=== PATIENT | female | born 1990 | race Caucasian/White ===

== ENCOUNTER 2016-10-31 08:09 | Inpatient (IN) | payer MEDICAID ==
[~2016-10-31 08:09] MED LIST: Acetaminophen 325 MG Tab PO PRN; Carboprost Tromethamine 250 MCG/1 ML Amp IM PRN; Lactated Ringers 1,000 ML IV SCH; Lactated Ringers 500 ML IV ONE; Lidocaine 1% 30 ML SDV INJECT PRN; Methylergonovine 0.2 MG/1 ML Amp IM PRN; Misoprostol 400 MCG (4 X 100 MCG TAB) RECTAL PRN; Ondansetron 4 MG/2 ML SDV IV PRN; Sodium Chloride 0.9% 10 ML Syringe FLUSH PRN
[2016-10-31] MEDS: Oxytocin/Normal Saline 30 UNIT/500 ML BAG IV SCH ×2 (08:50→18:38)
[2016-10-31] MEDS: fentaNYL 100 MCG/2 ML SDV IVPUSH PRN ×2 (13:05→15:15)
[2016-10-31] MEDS ORDERED: Ketorolac 30 MG/ML SDV IVPUSH PRN (16:46)
--- NOTE | 2016-10-31 16:51 | PCM.DEL ---
[id number]: 10/31/16 Mother's Due Date: 11/14/16 (lack of care ultrasound was inaccurate) - Delivery Note Labor: induced by oxytocin Delivery Outcome: Livebirth Infant Delivery Method: Spontaneous Vaginal Delivery Delivery Mode: Spontaneous Presentation: Right Occiput Posterior (ROP) Nuchal cord: present (delivered through) Anesthesia Type: None Amniotic Fluid Description: Clear (blood tinged) Episiotomy Type: None Laceration: vaginal ("skid rosas") Placenta: intact, spontaneous Cord: 3 vessels Estimated blood loss: 250 Resuscitation needed: No Armstrong: bulb syringe, stimulated, blanket used Score 1 min: 8 Score 5 min: 9 Second Stage Interventions: Reports: Encouragement Given Delivery Comments (Free Text/Narrative):: Dr. Yanez and myself (Katelyn Lin [facility]) Mother is a 27 year old now with a history of an with GBS septicemia. NO anesthesia was given due to patient preferences. Vancomycin for GBS prophylaxis was given Viable Infant girl was born via a vaginal delivery that was induced by pitocin. There was a cervical rim that was reducible but noted throughout active phase of labor. Loose Nuchal x1 and infant was delivered through. was bulb suctioned, dried, and stimulated as she was placed on mothers chest for skin to skin. Umbilical cord was 3 vessel and cord blood was collected to be sent to lab. Placenta was delivered and intact in approximately 10 minutes via active management. Some vaginal abrasions noted but hemostatic and did not require suturing. Cervix was visualized and no lacerations were noted. EBL was approximately 250 mL Mother and in stable condition Induction Criteria - Induction Estimated pelvis: Reports: Adequate Reassuring monitoring strip: Yes - General Info Date of Service: 10/31/16 Subjective Update: patient has delivered reports being extremely sore and is asking for pain management. plans to breast feed - Review of Systems General: Denies: Fever HEENT: Reports: sinus congestion Pulmonary: Reports: cough. Denies: shortness of breath, wheezing Cardiovascular: Reports: No Symptoms Gastrointestinal: Denies: Nausea, Vomiting Genitourinary: Reports: no symptoms Musculoskeletal: Reports: no symptoms Skin: Reports: no symptoms Neurological: Reports: No Symptoms Psychiatric: Reports: no symptoms - Patient Data Vitals - most recent: Last Vital Signs Temp 98.4 F 10/31/16 13:46 Pulse 91 10/31/16 14:02 Resp 16 10/31/16 14:02 BP 106/72 10/31/16 14:02 Pulse Ox 96 10/31/16 13:31 Weight - most recent: 68.946 kg I&O - last 24 hours: Intake & Output 10/31/16 10/31/16 10/31/16 06:59 14:59 22:59 Intake Total 770 Output Total 300 Balance 470 Lab Results last 24 hrs: Laboratory Results - last 24 hr 10/31/16 Range/Units 08:30 WBC 4.9 L (5.0-10.0) 10^3/uL RBC 3.92 L (4.2-5.4) 10^6/uL Hgb 10.3 L (12.0-16.0) g/dL Hct 32.1 L (37.0-47.0) % MCV 81.9 (80-100) fL MCH 26.3 L (27.0-34.0) pg MCHC 32.1 L (33.0-35.0) g/dL Plt Count 140 L (150-450) 10^3/uL Med Orders - Current: Current Medications Acetaminophen (Tylenol) 650 mg PO Q4H PRN PRN Reason: Pain (Mild 1-3) and fever Carboprost Tromethamine (Hemabate Ds) 250 mcg IM ASDIRECTED PRN PRN Reason: HEMORRHAGE Oxytocin/Sodium Chloride (Pitocin In Ns 30 Unit/500 Ml) 30 unit in 500 mls @ 2 mls/hr IV TITRATE [facility]REY; 2 MUNITS/MIN PRN Reason: Protocol Last Titration: 10/31/16 14:15 Dose: 20 munits/min, 20 mls/hr Methylergonovine Maleate (Methergine) 0.2 mg IM ASDIRECTED PRN PRN Reason: Hemorrhage Misoprostol (Cytotec) 800 mcg RECTAL ASDIRECTED PRN PRN Reason: Hemorrhage Sodium Chloride (Saline Flush) 10 ml FLUSH ASDIRECTED PRN PRN Reason: Keep Vein Open Discontinued Medications Fentanyl (Sublimaze) 50 mcg IVPUSH Q1H PRN PRN Reason: Pain (moderate 4-6) Last Admin: 10/31/16 15:15 Dose: 50 mcg Lactated Ringer's (Ringers, Lactated) 500 mls @ 999 mls/hr IV .BOLUS ONE Stop: 10/31/16 00:47 Lactated Ringer's (Ringers, Lactated) 1,000 mls @ 125 mls/hr IV ASDIRECTED [facility] Last Admin: 10/31/16 13:01 Dose: 125 mls/hr Vancomycin HCl 1 gm/ Sodium (Chloride) 250 mls @ 166.7 mls/hr IV Q12HR [facility] Last Admin: 10/31/16 08:48 Dose: 166.7 mls/hr Lidocaine HCl (Xylocaine-Mpf 1%) 10 ml INJECT ASDIRECTED PRN PRN Reason: Perineal Repair Ondansetron HCl (Zofran) 4 mg IV Q4H PRN PRN Reason: Nausea/Vomiting - Exam General: alert, oriented, cooperative, moderate distress (Female) Exam: Normal external exam Extremities: no edema Skin: warm, dry, intact - Problem List & Annotations (1) Insufficient care SNOMED Code(s): 2313043605036 Code(s): O09.30 - SUPRVSN OF PREG W INSUFFICIENT ANTENAT CARE, UNSP TRIMESTER Status: Acute (2) Hx maternal GBS (group B streptococcus) affected , SNOMED Code(s): 58222158 Code(s): O09.299 - SUPRVSN OF PREG W POOR REPRODCTV OR OBSTET HISTORY, UNSP TRI Status: Acute (3) Blood type A+ SNOMED Code(s): 187481659 Code(s): Z67.10 - TYPE A BLOOD, RH POSITIVE Status: Acute (4) Rubella nonimmune status, delivered, current hospitalization SNOMED Code(s): 083324881 Code(s): O99.89 - OTH DISEASES AND CONDITIONS COMPL PREG/CHLDBRTH; Z28.3 - UNDERIMMUNIZATION STATUS Status: Acute (5) Anemia affecting SNOMED Code(s): 75405558 Code(s): O99.019 - ANEMIA COMPLICATING , UNSPECIFIED TRIMESTER Status: Acute - Problem List Review Problem List Initiated/Reviewed/Updated: Yes - Assessment Assessment:: Patient is now status post vaginal delivery induced by pitocin Insufficent care Blood type A + Rubella nonimmune HIV, HBsAg and RPR nonreactive HIstory of infant affected GBS septicemia in previous Anemia complicating - Plan Plan:: 1. begin cares per unit protocol 2. Toradol for pain management (see orders) 3. Breast feed as able - consult as needed 4. labs see orders Katelyn Lin MSIII <Sofía Yanez - Last Filed: 11/03/16 10:36> - Patient Data Vitals - most recent: Last Vital Signs Temp 36.4 C 11/01/16 08:00 Pulse 81 11/01/16 08:00 Resp 18 11/01/16 08:00 BP 99/63 11/01/16 08:00 Pulse Ox 98 11/01/16 08:00 Med Orders - Current: Current Medications Discontinued Medications Acetaminophen (Tylenol) 650 mg PO Q4H PRN PRN Reason: Pain (Mild 1-3) and fever Last Admin: 11/01/16 12:16 Dose: 650 mg Carboprost Tromethamine (Hemabate Ds) 250 mcg IM ASDIRECTED PRN PRN Reason: HEMORRHAGE Fentanyl (Sublimaze) 50 mcg IVPUSH Q1H PRN PRN Reason: Pain (moderate 4-6) Last Admin: 10/31/16 15:15 Dose: 50 mcg Lactated Ringer's (Ringers, Lactated) 500 mls @ 999 mls/hr IV .BOLUS ONE Stop: 10/31/16 00:47 Last Admin: 10/31/16 15:37 Dose: 125 mls/hr Lactated Ringer's (Ringers, Lactated) 1,000 mls @ 125 mls/hr IV ASDIRECTED [facility] Last Admin: 10/31/16 13:01 Dose: 125 mls/hr Oxytocin/Sodium Chloride (Pitocin In Ns 30 Unit/500 Ml) 30 unit in 500 mls @ 2 mls/hr IV TITRATE HUMPHREY; 2 MUNITS/MIN PRN Reason: Protocol Last Titration: 10/31/16 19:45 Dose: 0 munits/min, 0 mls/hr Vancomycin HCl 1 gm/ Sodium (Chloride) 250 mls @ 166.7 mls/hr IV Q12HR [facility] Last Admin: 10/31/16 08:48 Dose: 166.7 mls/hr Ketorolac Tromethamine (Toradol) 30 mg IVPUSH Q6H PRN PRN Reason: Pain Stop: 11/05/16 16:46 Last Admin: 10/31/16 17:51 Dose: 30 mg Lidocaine HCl (Xylocaine-Mpf 1%) 10 ml INJECT ASDIRECTED PRN PRN Reason: Perineal Repair Methylergonovine Maleate (Methergine) 0.2 mg IM ASDIRECTED PRN PRN Reason: Hemorrhage Misoprostol (Cytotec) 800 mcg RECTAL ASDIRECTED PRN PRN Reason: Hemorrhage Ondansetron HCl (Zofran) 4 mg IV Q4H PRN PRN Reason: Nausea/Vomiting Prenat Multivit/Insurance Sales Specialist/Iron/Folic Ac ( Plus Iron) 1 each PO WITHBREAKFAST HUMPHREY Sodium Chloride (Saline Flush) 10 ml FLUSH ASDIRECTED PRN PRN Reason: Keep Vein Open - Plan Plan:: Agree with student assessment and plan. Normal vaginal delivery. No complications noted. Proceed with routine cares. Patient anticipates desiring to go home at 24 hours post delivery. Sofía Yanez MD
--- NOTE | 2016-10-31 17:12 | PCM.LDHP ---
L&D History of Present Illness - General Date of Service: 10/31/16 Admit Problem/Dx: Patient Status Order with Admit Dx/Problem 10/31/16 00:17 Patient Status [ADT] Routine Admission Diagnosis/Problem Admission Diagnosis/Problem care - History of Present Illness Introduction:: Patient is a 26-year-old at 41 weeks 3 days per her LMP. she presents to labor and delivery today for induction of labor due to postdates . It should be noted that she received late care. She had an ultrasound which would place her at 38 weeks 0 days gestation today; however, patient is very certain on her LMP. I had a long discussion with both the patient and her yesterday and last week regarding optimal time for induction based on the differing dates. Patient also had a BPP and NST yesterday with a score of 10 out of 10. Patient has been feeling well, although she does complain of some nasal congestion and a sore throat for the past 2 days. She did have a strep test done yesterday which was negative. Baby has been active. She has had some Lynn Escobedo contractions but nothing regular. No vaginal bleeding or leaking of fluid. Pain Score: 6 - Related Data Allergies/Adverse Reactions: Allergies Allergy/AdvReac Type Severity Reaction Status Date / Time Penicillins Allergy Anaphylactic Verified 10/31/16 09:18 Shock Home Medications: Home Meds Famotidine [Pepcid] 20 mg PO DAILY PRN 10/30/16 [History] Ferrous Sulfate [Iron] 1 tab PO BID 10/30/16 [History] PNV95/Ferrous Fumarate/FA [ Tablet] 1 tab PO DAILY 10/30/16 [History] Past Medical History - Past Health History Medical/Surgical History: Denies Medical/Surgical History HEENT History: Reports: None Cardiovascular History: Reports: None Respiratory History: Reports: None Gastrointestinal History: Reports: None Genitourinary History: Reports: None [employer] TE[employer] 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: Reports: , Other (see below) (first baby developed GBS sepsis shortly after delivery) Musculoskeletal History: Reports: None Neurological History: Reports: None Psychiatric History: Reports: None Endocrine/Metabolic History: Reports: None Hematologic History: Reports: Anemia Immunologic History: Reports: None Oncologic (Cancer) History: Reports: None Dermatologic History: Reports: None - Infectious Disease History Infectious Disease History: Reports: None - Past Surgical History Head Surgeries/Procedures: Reports: None Social & Family History - Family History Family Medical History: Noncontributory - Tobacco Use Smoking Status *Q: Former Smoker Years of Tobacco use: 10 Packs/Tins Daily: 0.5 Used Tobacco, but Quit: Yes Month Tobacco Last Used: 03 Second Hand Smoke Exposure: No - Caffeine Use Caffeine Use: Reports: Coffee, Soda - Recreational Drug Use Recreational Drug Use: No H&P Review of Systems - Review of Systems: Review Of Systems: See Below General: Reports: no symptoms HEENT: Reports: sinus congestion, sore throat Pulmonary: Reports: No Symptoms Cardiovascular: Reports: no symptoms Gastrointestinal: Reports: No symptoms Genitourinary: Reports: no symptoms Musculoskeletal: Reports: no symptoms Skin: Reports: no symptoms Neurological: Reports: No Symptoms L&D Exam - Exam Exam: See Below - Vital Signs Vital Signs: Last Vital Signs Temp 36.9 C 10/31/16 13:46 Pulse 91 10/31/16 14:02 Resp 16 10/31/16 14:02 BP 106/72 10/31/16 14:02 Pulse Ox 96 10/31/16 13:31 Weight: 68.946 kg - OB Specific Contraction Duration (sec): 30-60 Contraction Frequency (min): 2-3 Contraction Intensity: Moderate to Strong Presentation: Right Occiput Posterior (ROP) - Senior Score Senior Score Cervix Position: Midposition Senior Score Consistency: Soft Senior Score Effacement: 51-70% Senior Score Dilation: 3-4 cm Senior Score 's Station: -2 Senior Score Total: 8 - Exam General: alert, oriented Lungs: Clear to auscultation, Normal respiratory effort Cardiovascular: regular rate, regular rhythm Extremities: normal inspection. No: edema Skin: warm, dry, intact - Patient Data Lab Results last 24 hrs: Laboratory Results - last 24 hr 10/31/16 Range/Units 08:30 WBC 4.9 L (5.0-10.0) 10^3/uL RBC 3.92 L (4.2-5.4) 10^6/uL Hgb 10.3 L (12.0-16.0) g/dL Hct 32.1 L (37.0-47.0) % MCV 81.9 (80-100) fL MCH 26.3 L (27.0-34.0) pg MCHC 32.1 L (33.0-35.0) g/dL Plt Count 140 L (150-450) 10^3/uL Result Diagrams: 10/31/16 08:30 Problem List Initiated/Reviewed/Updated: Yes Orders Last 24hrs: Active Orders 24 hr Category Date Time Status Patient Status [ADT] Routine ADT 10/31/16 00:17 Active Communication Order [RC] ASDIRECTED Care 10/31/16 00:17 Active Communication Order [RC] ASDIRECTED Care 10/31/16 00:17 Active Communication Order [RC] ASDIRECTED Care 10/31/16 00:17 Active Communication Order [RC] ASDIRECTED Care 10/31/16 00:17 Active Notify Provider [RC] PRN Care 10/31/16 00:17 Active Notify Provider [RC] STAT Care 10/31/16 00:17 Active Peripheral IV Care [RC] . DIRECTED Care 10/31/16 00:18 Active Pump Management, Intrathecal [RC] ASDIRECTED Care 10/31/16 00:17 Inactive Vaginal Exam [RC] PRN Care 10/31/16 00:17 Active Acetaminophen [Tylenol] Med 10/31/16 00:17 Active 650 mg PO Q4H PRN Carboprost Tromethamine [Hemabate DS] Med 10/31/16 00:17 Active 250 mcg IM ASDIRECTED PRN Ketorolac [Toradol] Med 10/31/16 16:46 Active 30 mg IVPUSH Q6H PRN Methylergonovine [Methergine] Med 10/31/16 00:17 Active 0.2 mg IM ASDIRECTED PRN Misoprostol [Cytotec] Med 10/31/16 00:17 Active 800 mcg RECTAL ASDIRECTED PRN Oxytocin/Normal Saline [Pitocin in NS 30 UNIT/500 ML] Med 10/31/16 00:30 Active 30 unit in 500 ml IV TITRATE Sodium Chloride 0.9% [Saline Flush] Med 10/31/16 00:17 Active 10 ml FLUSH ASDIRECTED PRN Peripheral IV Insertion Adult [OM.PC] Urgent Oth 10/31/16 00:17 Ordered Saline Lock Insert [OM.PC] Routine Oth 10/31/16 00:17 Ordered Resuscitation Status Routine Resus Stat 10/31/16 00:17 Ordered Medication Orders Acetaminophen (Tylenol) 650 mg PO Q4H PRN PRN Reason: Pain (Mild 1-3) and fever Carboprost Tromethamine (Hemabate Ds) 250 mcg IM ASDIRECTED PRN PRN Reason: HEMORRHAGE Oxytocin/Sodium Chloride (Pitocin In Ns 30 Unit/500 Ml) 30 unit in 500 mls @ 2 mls/hr IV TITRATE HUMPHREY; 2 MUNITS/MIN PRN Reason: Protocol Last Titration: 10/31/16 14:15 Dose: 20 munits/min, 20 mls/hr Titration: 10/31/16 13:45 Dose: 18 munits/min, 18 mls/hr Titration: 10/31/16 13:08 Dose: 16 munits/min, 16 mls/hr Titration: 10/31/16 12:02 Dose: 14 munits/min, 14 mls/hr Titration: 10/31/16 11:31 Dose: 12 munits/min, 12 mls/hr Titration: 10/31/16 11:01 Dose: 10 munits/min, 10 mls/hr Titration: 10/31/16 10:32 Dose: 8 munits/min, 8 mls/hr Titration: 10/31/16 10:02 Dose: 6 munits/min, 6 mls/hr Titration: 10/31/16 09:37 Dose: 4 munits/min, 4 mls/hr Admin: 10/31/16 08:50 Dose: 2 munits/min, 2 mls/hr Ketorolac Tromethamine (Toradol) 30 mg IVPUSH Q6H PRN PRN Reason: Pain Stop: 11/05/16 16:46 Methylergonovine Maleate (Methergine) 0.2 mg IM ASDIRECTED PRN PRN Reason: Hemorrhage Misoprostol (Cytotec) 800 mcg RECTAL ASDIRECTED PRN PRN Reason: Hemorrhage Sodium Chloride (Saline Flush) 10 ml FLUSH ASDIRECTED PRN PRN Reason: Keep Vein Open Assessment/Plan Comment:: PROBLEM LIST: 1. care, subsequent 2. Late care in third trimester 3. Rubella nonimmune 4. Anemia in , third trimester 5. GBS positive, history of baby with GBS sepsis ASSESSMENT: 26-year-old at 41 weeks 3 days per LMP who presents for induction of labor for postdates PLAN: 1. Admit patient to labor and delivery 2. Initiate routine intrapartum orders 3. Vancomycin for GBS positive status 4. Pitocin for induction of labor per protocol 5. We will attempt AROM when able 6. Anticipate vaginal delivery. Expectant management. Sofía Yanez MD
--- NOTE | 2016-11-01 08:32 | PCM.DCSUM1 ---
[id number] Text/Narrative:: Patient has faired well throughout hospital course. She has had no complications. HEr questions about infant's risk for GBS septicemia and for what they can do to prevent her from getting their cold have been addressed. HPI Initial Comments: admission H&P Patient is a 26-year-old at 41 weeks 3 days per her LMP. she presents to labor and delivery today for induction of labor due to postdates . It should be noted that she received late care. She had an ultrasound which would place her at 38 weeks 0 days gestation today; however, patient is very certain on her LMP. I had a long discussion with both the patient and her yesterday and last week regarding optimal time for induction based on the differing dates. Patient also had a BPP and NST yesterday with a score of 10 out of 10. Patient has been feeling well, although she does complain of some nasal congestion and a sore throat for the past 2 days. She did have a strep test done yesterday which was negative. Baby has been active. She has had some [place] contractions but nothing regular. No vaginal bleeding or leaking of fluid. - Discharge Data Discharge Date: 11/01/16 Discharge Disposition: Home, Self-Care 01 Condition: Good - Discharge Diagnosis/Problem(s) (1) Insufficient care SNOMED Code(s): 1080586976565 ICD Code: O09.30 - SUPRVSN OF PREG W INSUFFICIENT ANTENAT CARE, UNSP TRIMESTER Status: Acute (2) Hx maternal GBS (group B streptococcus) affected , SNOMED Code(s): 37415843 ICD Code: O09.299 - SUPRVSN OF PREG W POOR REPRODCTV OR OBSTET HISTORY, UNSP TRI Status: Acute (3) Blood type A+ SNOMED Code(s): 663512804 ICD Code: Z67.10 - TYPE A BLOOD, RH POSITIVE Status: Acute (4) Rubella nonimmune status, delivered, current hospitalization SNOMED Code(s): 653589912 ICD Code: O99.89 - OTH DISEASES AND CONDITIONS COMPL PREG/CHLDBRTH; Z28.3 - UNDERIMMUNIZATION STATUS Status: Acute (5) Anemia affecting SNOMED Code(s): 36497939 ICD Code: O99.019 - ANEMIA COMPLICATING , UNSPECIFIED TRIMESTER Status: Acute - Patient Instructions Diet: Regular Diet as Tolerated Activity: Apply Ice, No Strenuous Activities (pelvic rest for 6 weeks ) Driving: Do Not Drive Showering/Bathing: May Shower Notify Provider of: Fever, Increased Pain, Drainage, Nausea and/or Vomiting - Discharge Plan Home Medications: Home Meds Famotidine [Pepcid] 20 mg PO DAILY PRN 10/30/16 [History] Ferrous Sulfate [Iron] 1 tab PO BID 10/30/16 [History] PNV95/Ferrous Fumarate/FA [ Tablet] 1 tab PO DAILY 10/30/16 [History] Patient Handouts: Home Care Instructions for Mom, Care After Vaginal Delivery Referrals: Sofía Yanez MD [Primary Care Provider] - (6 weeks post- visit) - General Info Date of Service: 11/01/16 Admission Dx/Problem (Free Text: Patient Status Order with Admit Dx/Problem Assessment/Plan Comment:: PROBLEM LIST: 1. care, subsequent 2. Late care in third trimester 3. Rubella nonimmune 4. Anemia in , third trimester 5. GBS positive, history of baby with GBS sepsis Subjective Update: patient has no complaints, states that she has been able to ambulate and that breast feeding has been going okay. She notes that she does not like that she doesnt know how much is getting. Functional Status: Reports: pain controlled, tolerating diet, ambulating, urinating - Review of Systems General: Reports: No Symptoms. Denies: Fever, Chills HEENT: Reports: sinus congestion, sore throat Pulmonary: Reports: no symptoms Cardiovascular: Reports: No Symptoms Gastrointestinal: Reports: No symptoms. Denies: Nausea, Vomiting Genitourinary: Reports: no symptoms. Denies: dysuria Musculoskeletal: Reports: no symptoms Skin: Reports: no symptoms Neurological: Reports: No Symptoms Psychiatric: Reports: no symptoms - Patient Data Vitals - Most Recent: Last Vital Signs Temp 98.6 F 10/31/16 20:17 Pulse 88 10/31/16 20:17 Resp 16 10/31/16 20:17 BP 106/81 10/31/16 20:17 Pulse Ox 96 10/31/16 20:17 Weight - Most Recent: 68.946 kg I&O - Last 24 hours: Intake & Output 10/31/16 11/01/16 11/01/16 22:59 06:59 14:59 Intake Total 1500 Balance 1500 Lab Results - Last 24 hrs: Laboratory Results - last 24 hr 10/31/16 Range/Units 08:30 WBC 4.9 L (5.0-10.0) 10^3/uL RBC 3.92 L (4.2-5.4) 10^6/uL Hgb 10.3 L (12.0-16.0) g/dL Hct 32.1 L (37.0-47.0) % MCV 81.9 (80-100) fL MCH 26.3 L (27.0-34.0) pg MCHC 32.1 L (33.0-35.0) g/dL Plt Count 140 L (150-450) 10^3/uL Med Orders - Current: Current Medications Acetaminophen (Tylenol) 650 mg PO Q4H PRN PRN Reason: Pain (Mild 1-3) and fever Carboprost Tromethamine (Hemabate Ds) 250 mcg IM ASDIRECTED PRN PRN Reason: HEMORRHAGE Oxytocin/Sodium Chloride (Pitocin In Ns 30 Unit/500 Ml) 30 unit in 500 mls @ 2 mls/hr IV TITRATE [facility]MPHREY; 2 MUNITS/MIN PRN Reason: Protocol Last Titration: 10/31/16 19:45 Dose: 0 munits/min, 0 mls/hr Ketorolac Tromethamine (Toradol) 30 mg IVPUSH Q6H PRN PRN Reason: Pain Stop: 11/05/16 16:46 Last Admin: 10/31/16 17:51 Dose: 30 mg Methylergonovine Maleate (Methergine) 0.2 mg IM ASDIRECTED PRN PRN Reason: Hemorrhage Misoprostol (Cytotec) 800 mcg RECTAL ASDIRECTED PRN PRN Reason: Hemorrhage Sodium Chloride (Saline Flush) 10 ml FLUSH ASDIRECTED PRN PRN Reason: Keep Vein Open Discontinued Medications Fentanyl (Sublimaze) 50 mcg IVPUSH Q1H PRN PRN Reason: Pain (moderate 4-6) Last Admin: 10/31/16 15:15 Dose: 50 mcg Lactated Ringer's (Ringers, Lactated) 500 mls @ 999 mls/hr IV .BOLUS ONE Stop: 10/31/16 00:47 Last Admin: 10/31/16 15:37 Dose: 125 mls/hr Lactated Ringer's (Ringers, Lactated) 1,000 mls @ 125 mls/hr IV ASDIRECTED [facility] Last Admin: 10/31/16 13:01 Dose: 125 mls/hr Vancomycin HCl 1 gm/ Sodium (Chloride) 250 mls @ 166.7 mls/hr IV Q12HR [facility] Last Admin: 10/31/16 08:48 Dose: 166.7 mls/hr Lidocaine HCl (Xylocaine-Mpf 1%) 10 ml INJECT ASDIRECTED PRN PRN Reason: Perineal Repair Ondansetron HCl (Zofran) 4 mg IV Q4H PRN PRN Reason: Nausea/Vomiting - Exam General: Reports: alert, oriented HEENT: Reports: Pupils equal, Pupils reactive, EOMI, Mucous membr. moist/pink Neck: Reports: supple Lungs: Reports: Clear to auscultation, Normal respiratory effort Cardiovascular: Reports: Regular Rate, Regular Rhythm Abdomen: Reports: bowel sounds present, soft, no tenderness, no distension (Female) Exam: Deferred Rectal (Female) Exam: Deferred Back Exam: Reports: normal inspection, full range of motion Extremities: Reports: no edema, normal pulses Skin: Reports: warm, dry, intact Neurological: Reports: no new focal deficit Psy/Mental Status: Reports: alert, normal affect, normal mood *Q Meaningful Use (DIS) - VTE *Q VTE Criteria *Q: - Stroke *Q Stroke Criteria *Q: - AMI *Q AMI Criteria *Q: <Sofía Yanez - Last Filed: 11/03/16 10:39> Discharge Summary - Discharge Summary/Plan Comment Discharge Summary/Plan Comment: Agree with student assessment and plan. Patient is doing well on day #1 status post normal spontaneous vaginal delivery. She has no concerns today. Her pain is well-controlled. She will follow-up with me in 6 weeks for visit as well as Mirena insertion. She does not think that she desires anymore children; however, she would like this option to be available to her. Sofía Yanez MD - Patient Data Vitals - Most Recent: Last Vital Signs Temp 36.4 C 11/01/16 08:00 Pulse 81 11/01/16 08:00 Resp 18 11/01/16 08:00 BP 99/63 11/01/16 08:00 Pulse Ox 98 11/01/16 08:00 Med Orders - Current: Current Medications Discontinued Medications Acetaminophen (Tylenol) 650 mg PO Q4H PRN PRN Reason: Pain (Mild 1-3) and fever Last Admin: 11/01/16 12:16 Dose: 650 mg Carboprost Tromethamine (Hemabate Ds) 250 mcg IM ASDIRECTED PRN PRN Reason: HEMORRHAGE Fentanyl (Sublimaze) 50 mcg IVPUSH Q1H PRN PRN Reason: Pain (moderate 4-6) Last Admin: 10/31/16 15:15 Dose: 50 mcg Lactated Ringer's (Ringers, Lactated) 500 mls @ 999 mls/hr IV .BOLUS ONE Stop: 10/31/16 00:47 Last Admin: 10/31/16 15:37 Dose: 125 mls/hr Lactated Ringer's (Ringers, Lactated) 1,000 mls @ 125 mls/hr IV ASDIRECTED [facility] Last Admin: 10/31/16 13:01 Dose: 125 mls/hr Oxytocin/Sodium Chloride (Pitocin In Ns 30 Unit/500 Ml) 30 unit in 500 mls @ 2 mls/hr IV TITRATE HUMPHREY; 2 MUNITS/MIN PRN Reason: Protocol Last Titration: 10/31/16 19:45 Dose: 0 munits/min, 0 mls/hr Vancomycin HCl 1 gm/ Sodium (Chloride) 250 mls @ 166.7 mls/hr IV Q12HR [facility] Last Admin: 10/31/16 08:48 Dose: 166.7 mls/hr Ketorolac Tromethamine (Toradol) 30 mg IVPUSH Q6H PRN PRN Reason: Pain Stop: 11/05/16 16:46 Last Admin: 10/31/16 17:51 Dose: 30 mg Lidocaine HCl (Xylocaine-Mpf 1%) 10 ml INJECT ASDIRECTED PRN PRN Reason: Perineal Repair Methylergonovine Maleate (Methergine) 0.2 mg IM ASDIRECTED PRN PRN Reason: Hemorrhage Misoprostol (Cytotec) 800 mcg RECTAL ASDIRECTED PRN PRN Reason: Hemorrhage Ondansetron HCl (Zofran) 4 mg IV Q4H PRN PRN Reason: Nausea/Vomiting Prenat Multivit/[place]/Iron/Folic Ac ( Plus Iron) 1 each PO WITHBREAKFAST HUMPHREY Sodium Chloride (Saline Flush) 10 ml FLUSH ASDIRECTED PRN PRN Reason: Keep Vein Open *Q Meaningful Use (DIS) - VTE *Q VTE Criteria *Q: - Stroke *Q Stroke Criteria *Q: - AMI *Q AMI Criteria *Q:
[2016-11-01 11:17] VITALS: BP 99/63
[2016-11-02] MEDS ORDERED: Prenatal Multivitamin with Calcium/Folic Acid/Iron Tab PO SCH (08:00)
== END 2016-11-01 18:30 | disposition home or self-care (01) | DRG 774 ==
LOC: EDSTATUS 08:09 → DL.OB 08:11 → OBSVTOIN 16:29 → DL.OB 16:29
PROVIDERS: ADMIT Family Medicine; ATTEND Family Medicine
PROC: 10E0XZZ Delivery of Products of Conception, External Approach (ICD-10-PCS; principal; 2016-10-31)
PROC: 3E033VJ Introduction of Other Hormone into Peripheral Vein, Percutaneous Approach (ICD-10-PCS; 2016-10-31)
DX: O48.0 Post-term pregnancy (principal); O98.82 Other maternal infectious and parasitic diseases complicating childbirth; O09.33 Supervision of pregnancy with insufficient antenatal care, third trimester; O99.02 Anemia complicating childbirth; D64.9 Anemia, unspecified; B95.1 Streptococcus, group B, as the cause of diseases classified elsewhere; Z3A.41 41 weeks gestation of pregnancy; Z37.0 Single live birth
CPT/HCPCS: 36415; 85027; A9270-GY; J1885; J2590; J3010; J3370; J7050; J7120

== ENCOUNTER 2017-09-12 13:18 | Emergency (ER) | payer MEDICAID ==
[2017-09-12 13:40] VITALS: BP 103/64
--- NOTE | 2017-09-12 14:19 | EDM.PDOC ---
ED HPI GENERAL MEDICAL PROBLEM - General Chief Complaint: Neuro Symptoms/Deficits Stated Complaint: PASSED OUT, [id number] Time Seen by Provider: 09/12/17 13:45 Source of Information: Reports: Patient History Limitations: Reports: No Limitations - History of Present Illness INITIAL COMMENTS - FREE TEXT/NARRATIVE: Abbie presents to the ED due to a 2 week history of dizziness. She reports that her dizziness is primarily when she stands. Reports that she has needed to hold onto the wall at home for support due to her dizziness. She reports that she has had a headache off and on. Reports photophobia and blurred vision with headaches. Relief with acetaminophen. Denies nausea, vomiting, diarrhea, or phonaphobia. She feels generalized weakness. She reports that approximately 3 days ago she passed out twice and was evaluated in [place]. She reports that she was told that she was dehydrated. Onset: Gradual, Other (Reports sx started two weeks ago) Duration: Getting Worse, Intermittent Location: Reports: Head Quality: Reports: Ache, Throbbing Severity: Moderate Improves with: Reports: Medication Worsens with: Reports: Movement Associated Symptoms: Reports: Headaches, Syncope, Weakness - Related Data Allergies Allergy/AdvReac Type Severity Reaction Status Date / Time Penicillins Allergy Anaphylactic Verified 09/12/17 13:34 Shock Home Meds: Home Meds Levonorgestrel [Mirena] 09/12/17 [History] Past Medical History - Past Health History Medical/Surgical History: Denies Medical/Surgical History HEENT History: Reports: None Cardiovascular History: Reports: None Respiratory History: Reports: None Gastrointestinal History: Reports: None Genitourinary History: Reports: None 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: , Other (See Below) Musculoskeletal History: Reports: None Neurological History: Reports: None Psychiatric History: Reports: None Endocrine/Metabolic History: Reports: None Hematologic History: Reports: Anemia Immunologic History: Reports: None Oncologic (Cancer) History: Reports: None Dermatologic History: Reports: None - Infectious Disease History Infectious Disease History: Reports: None - Past Surgical History Head Surgeries/Procedures: Reports: None Social & Family History - Family History Family Medical History: Noncontributory - Tobacco Use Smoking Status *Q: Current Every Day Smoker Years of Tobacco use: 5 Packs/Tins Daily: 1 Used Tobacco, but Quit: Yes Month Tobacco Last Used: 03 Second Hand Smoke Exposure: No - Caffeine Use Caffeine Use: Reports: Soda - Recreational Drug Use Recreational Drug Use: No ED ROS GENERAL - Review of Systems Review Of Systems: ROS reveals no pertinent complaints other than HPI. ED EXAM, DIZZINESS - Physical Exam Exam: See Below Exam Limited By: No Limitations General Appearance: Alert, WD/WN, No Apparent Distress Eye Exam: Bilateral Eye: EOMI, Normal Inspection, PERRL Ears: Normal External Exam, Normal Canal, Hearing Grossly Normal, Normal TMs Nose: Normal Inspection, Normal Mucosa, No Blood Throat/Mouth: Normal Inspection, Normal Lips, Normal Teeth, Normal Gums, Normal Oropharynx, Normal Voice, No Airway Compromise Head Exam: Atraumatic, Normocephalic Neck: Normal Inspection, Supple, Non-Tender, Full Range of Motion Respiratory/Chest: No Respiratory Distress, Lungs Clear, Normal Breath Sounds, No Accessory Muscle Use, Chest Non-Tender Cardiovascular: Normal Peripheral Pulses, Regular Rate, Rhythm, No Edema, No Gallop, No JVD, No Murmur, No Rub GI/Abdominal: Normal Bowel Sounds, Soft, Non-Tender, No Organomegaly, No Distention, No Abnormal Bruit, No Mass (Female) Exam: Deferred Rectal (Female) Exam: Deferred Neurological: Alert, Normal Mood/Affect, Normal Dorsiflexion, CN II-XII Intact, Normal Plantar Flexion, Normal Gait, Normal Reflexes, No Motor/Sensory Deficits , Oriented x 3 Back Exam: Normal Inspection, Full Range of Motion, NT Extremities: Normal Inspection, Normal Range of Motion, Non-Tender, No Pedal Edema, Normal Capillary Refill Psychiatric: Normal Affect, Normal Mood Skin Exam: Warm, Dry, Intact, Normal Color, No Rash EKG INTERPRETATION EKG Date: 09/12/17 Time: 13:57 Rhythm: NSR [place]: Normal P-Wave: Present QRS: Normal ST-T: Normal QT: Normal Course - Vital Signs Last Recorded V/S: Last Vital Signs Temp 97.9 F 09/12/17 13:37 Pulse 97 09/12/17 13:37 Resp 18 09/12/17 13:37 BP 103/64 09/12/17 13:37 Pulse Ox 100 09/12/17 13:37 Orthostatic Blood Pressure [ 80/64 Standing] Orthostatic Blood Pressure [ 103/64 Sitting] Orthostatic Blood Pressure [ 99/60 Supine] - Orders/Labs/Meds Orders: Active Orders 24 hr Category Date Time Status EKG Documentation Completion [RC] STAT Care 09/12/17 13:53 Active Peripheral IV Care [RC] . DIRECTED Care 09/12/17 13:54 Active Peripheral IV Insertion Adult [OM.PC] Stat Oth 09/12/17 13:52 Ordered Labs: Laboratory Tests 09/12/17 09/12/17 09/12/17 Range/Units 13:53 13:53 13:53 WBC (5.0-10.0) 10^3/uL RBC (4.2-5.4) 10^6/uL Hgb (12.0-16.0) g/dL Hct (37.0-47.0) % MCV (80-100) fL MCH (27.0-34.0) pg MCHC (33.0-35.0) g/dL Plt Count (150-450) 10^3/uL Neut % (Auto) (42.2-75.2) % Lymph % (Auto) (20.5-50.1) % [place] % (Auto) (2-8) % Eos % (Auto) (1.0-3.0) % Baso % (Auto) (0.0-1.0) % Sodium (135-145) mmol/L Potassium (3.6-5.0) mmol/L Chloride (101-111) mmol/L Carbon Dioxide (21.0-31.0) mmol/L Anion Gap BUN (7-18) mg/dL Creatinine (0.6-1.3) mg/dL Est Cr Clr Drug Dosing mL/min Estimated GFR (MDRD) BUN/Creatinine Ratio Glucose (74-105) mg/dL Calcium (8.4-10.2) mg/dl Total Bilirubin (0.2-1.0) mg/dL AST (10-42) IU/L ALT (10-60) IU/L Alkaline Phosphatase (42-121) IU/L Total Protein (6.7-8.2) g/dl Albumin (3.2-5.5) g/dl Globulin Albumin/Globulin Ratio Urine Color Yellow (YELLOW) Urine Appearance Slightly cloudy (CLEAR) Urine pH 6.0 (5.0-9.0) Ur Specific [place] 1.020 (1.005-1.030) Urine Protein Negative (NEGATIVE) Urine Glucose (UA) Negative (NEGATIVE) Urine Ketones Trace H (NEGATIVE) Urine Occult Blood Negative (NEGATIVE) Urine Nitrite Negative (NEGATIVE) Urine Bilirubin Negative (NEGATIVE) Urine Urobilinogen 0.2 (0.2-1.0) mg/dL Ur Leukocyte Esterase Negative (NEGATIVE) Urine RBC 0-5 /HPF Urine WBC 0-5 (0-5/HPF) /HPF Ur Epithelial Cells Moderate H /HPF Amorphous Sediment Rare (0/HPF) /HPF Urine Bacteria Few (0-FEW/HPF) /HPF Urine Mucus Few H /LPF Urine HCG, Qual Negative Urine Opiates Screen Negative (NEGATIVE) Ur Oxycodone Screen Negative (NEGATIVE) Urine Methadone Screen Negative (NEGATIVE) Ur Barbiturates Screen Negative (NEGATIVE) U Tricyclic Antidepress Negative (NEGATIVE) Ur Phencyclidine Scrn Negative (NEGATIVE) Ur Amphetamine Screen Negative (NEGATIVE) U Methamphetamines Scrn Negative (NEGATIVE) Urine MDMA Screen Negative (NEGATIVE) U Benzodiazepines Scrn Negative (NEGATIVE) Urine Cocaine Screen Negative (NEGATIVE) U Marijuana (THC) Screen Negative (NEGATIVE) 09/12/17 09/12/17 Range/Units 14:02 14:02 WBC 6.1 (5.0-10.0) 10^3/uL RBC 4.50 (4.2-5.4) 10^6/uL Hgb 13.9 D (12.0-16.0) g/dL Hct 41.3 (37.0-47.0) % MCV 91.8 D (80-100) fL MCH 30.9 (27.0-34.0) pg MCHC 33.7 (33.0-35.0) g/dL Plt Count 138 L (150-450) 10^3/uL Neut % (Auto) 59.8 (42.2-75.2) % Lymph % (Auto) 31.5 (20.5-50.1) % [place] % (Auto) 5.9 (2-8) % Eos % (Auto) 2.3 (1.0-3.0) % Baso % (Auto) 0.5 (0.0-1.0) % Sodium 140 (135-145) mmol/L Potassium 3.8 (3.6-5.0) mmol/L Chloride 106 (101-111) mmol/L Carbon Dioxide 29.0 (21.0-31.0) mmol/L Anion Gap 8.8 BUN 7 (7-18) mg/dL Creatinine 0.9 (0.6-1.3) mg/dL Est Cr Clr Drug Dosing 74.26 mL/min Estimated GFR (MDRD) > 60 BUN/Creatinine Ratio 7.77 Glucose 85 (74-105) mg/dL Calcium 9.0 (8.4-10.2) mg/dl Total Bilirubin 0.4 (0.2-1.0) mg/dL AST 31 (10-42) IU/L ALT 26 (10-60) IU/L Alkaline Phosphatase 37 L (42-121) IU/L Total Protein 6.7 (6.7-8.2) g/dl Albumin 3.8 (3.2-5.5) g/dl Globulin 2.9 Albumin/Globulin Ratio 1.31 Urine Color (YELLOW) Urine Appearance (CLEAR) Urine pH (5.0-9.0) Ur Specific [place] (1.005-1.030) Urine Protein (NEGATIVE) Urine Glucose (UA) (NEGATIVE) Urine Ketones (NEGATIVE) Urine Occult Blood (NEGATIVE) Urine Nitrite (NEGATIVE) Urine Bilirubin (NEGATIVE) Urine Urobilinogen (0.2-1.0) mg/dL Ur Leukocyte Esterase (NEGATIVE) Urine RBC /HPF Urine WBC (0-5/HPF) /HPF Ur Epithelial Cells /HPF Amorphous Sediment (0/HPF) /HPF Urine Bacteria (0-FEW/HPF) /HPF Urine Mucus /LPF Urine HCG, Qual Urine Opiates Screen (NEGATIVE) Ur Oxycodone Screen (NEGATIVE) Urine Methadone Screen (NEGATIVE) Ur Barbiturates Screen (NEGATIVE) U Tricyclic Antidepress (NEGATIVE) Ur Phencyclidine Scrn (NEGATIVE) Ur Amphetamine Screen (NEGATIVE) U Methamphetamines Scrn (NEGATIVE) Urine MDMA Screen (NEGATIVE) U Benzodiazepines Scrn (NEGATIVE) Urine Cocaine Screen (NEGATIVE) U Marijuana (THC) Screen (NEGATIVE) Meds: Medications Discontinued Medications Generic Name Dose Route Start Last Admin Trade Name Freq PRN Reason Stop Dose Admin Sodium Chloride 1,000 mls @ 999 mls/hr 09/12/17 13:54 09/12/17 14:20 Normal Saline IV 09/12/17 14:54 175 mls/hr .BOLUS ONE Administration Sodium Chloride 10 ml 09/12/17 13:54 09/12/17 14:20 Saline Flush FLUSH 10 ml ASDIRECTED PRN Administration Keep Vein Open - Radiology Interpretation Free Text/Narrative:: Head CT: Acute sinusitis See rad report Departure - Departure Time of Disposition: 15:35 Disposition: Home, Self-Care 01 Condition: Fair Clinical Impression: Sinusitis Qualifiers: Sinusitis location: unspecified location Chronicity: acute Recurrence: not specified as recurrent Qualified Code(s): J01.90 - Acute sinusitis, unspecified - Discharge Information Instructions: Sinusitis, Adult, [id number] Referrals: Sofía Yanez MD [Primary Care Provider] - Forms: ED Department Discharge Additional Instructions: RX: Clindamycin Drink plenty of water Follow up with your primary care facility for recheck Flonase over the counter as directed - My Orders Last 24 Hours: My Active Orders 09/12/17 13:52 Peripheral IV Insertion Adult [OM.PC] Stat 09/12/17 13:53 EKG Documentation Completion [RC] STAT 09/12/17 13:54 Peripheral IV Care [RC] . DIRECTED - Assessment/Plan Last 24 Hours: My Active Orders 09/12/17 13:52 Peripheral IV Insertion Adult [OM.PC] Stat 09/12/17 13:53 EKG Documentation Completion [RC] STAT 09/12/17 13:54 Peripheral IV Care [RC] . DIRECTED
[2017-09-12] MEDS: Sodium Chloride 0.9% 1,000 ML IV ONE (14:20)
[2017-09-12] MEDS: Sodium Chloride 0.9% 10 ML Syringe FLUSH PRN (14:20)
[2017-09-12 14:30] LABS: CHLORIDE,CL 106 mmol/L (101-111); SODIUM,NA 140 mmol/L (135-145)
--- NOTE | 2017-09-12 15:19 | CT ---
Clinical history: 26-year-old female complaining of headaches and dizziness. TECHNIQUE: Volume acquisition of data emergency unenhanced CT scan of the head and brain obtained wit h the patient lying supine on the Siemens multi slice CT scanner [facility]. All data archived in the PACS system for storage and study (bone/brain windows). Interpretation: 1. Asymmetric isolated dense mucoperiosteal inflammatory thickening maxillary antrum, on the left. Pa ranasal and mastoid sinuses otherwise symmetrically pneumatized and clear. Nasal septum is straight i n the midline. 2. Uniformly thick bony calvarium without sign of pathologic skeletal lesion, skull fracture, underly ing brain contusion or epidural/subdural hematoma. 3. No supratentorial or posterior fossa mass lesion. No hydrocephalus. Physiologic midline pineal shea cification. 4. Symmetric morin-white matter pattern and underlying mirror-image normal ventricular system. Cerebel lum and brainstem normal. 5. No focal areas of ischemic infarct or signs of acute intracerebral/intraventricular/subarachnoid b leed. CONCLUSION: Left maxillary sinusitis. Otherwise negative unenhanced CT scan head and brain.
--- NOTE | 2017-09-14 09:18 | EKG ---
09/12/2017- STEFF CALHOUN - FINDINGS: EKG, per my reading, shows sinus rhythm at the rate of 80s. [facility] /[id number]
== END 2017-09-12 15:46 | disposition home or self-care (01) ==
LOC: DL.ED 13:18
DX: J01.90 Acute sinusitis, unspecified (principal); F17.210 Nicotine dependence, cigarettes, uncomplicated; Z88.0 Allergy status to penicillin
CPT/HCPCS: 36415; 70450; 80053; 80305; 81001; 81025; 85025; 87804; 93005; 96360; 99284; J7030; J7050